=== PATIENT | female | born 1960 | race African-American/Black ===

== ENCOUNTER 2025-05-22 22:53 | Emergency (ER) | payer MEDICAID, OTHER ==
[~2025-05-22] VITALS: Ht 170.2 cm; Wt 125.0 kg
[2025-05-22 22:55] VITALS: O2SAT 98
[2025-05-22 23:32] LABS: BASOPHILS % 0.5 % (0.0-2.0); EOSINOPHILS % 0.4 % (0.0-5.0); HEMATOCRIT. 33.1 % (36.0-48.0); HEMOGLOBIN. 10.9 g/dL (12.0-16.0); LYMPHOCYTES % 17.3 % (20.0-50.0); MEAN PLATELET VOLUME 8.5 fl (7.4-10.4); MONOCYTES % 7.2 % (2.0-8.0); NEUTROPHILS % 74.6 % (40.0-76.0); PLATELET 238 x1000/uL (130-400); RED BLOOD CELL COUNT 3.52 mill/uL (4.2-5.4); RED CELL DISTRIBUTION WIDTH 15.0 % (11.6-14.6)
[2025-05-22 23:44] LABS: CREATININE 1.6 mg/dL (0.6-1.0); UREA NITROGEN BLOOD 24 mg/dL (9-23)
[2025-05-22 23:46] LABS: ASPARTATE AMINOTRANSFERASE 14 IU/L (<34)
[2025-05-22 23:47] LABS: BILIRUBIN DIRECT 0.2 mg/dL (<=3.0); BILIRUBIN TOTAL 0.7 mg/dL (0.1-1.0); PROTEIN TOTAL 7.3 g/dL (6.0-8.3)
[2025-05-22 23:49] LABS: INR 1.1
[2025-05-22 23:52] LABS: TROPONIN I HIGH SENSITIVITY 35 ng/L (3.0-34)
[2025-05-23] MEDS: ASPIRIN 81MG TABLET PO ONE (00:09)
[2025-05-23 00:57] VITALS: BP 142/77; PULSE 68; RESP 12; TEMP 36.8; O2SAT 95
[2025-05-23] MEDS ORDERED: IOHEXOL-350 100 ML BOTTLE ONE ×2 (02:08→08:07)
[2025-05-23] MEDS ORDERED: ATORVASTATIN CALCIUM 40MG TABLET PO SCH (21:00)
== END 2025-05-23 01:05 | disposition short-term general hospital (02) ==
LOC: ER 22:53 → CMPBEDREQ 05-23 08:00
DX: R47.01 Aphasia (principal); E78.00 Pure hypercholesterolemia, unspecified; E11.9 Type 2 diabetes mellitus without complications; Z79.01 Long term (current) use of anticoagulants; Z79.899 Other long term (current) drug therapy
CPT/HCPCS: 80076; 80048; 80320; 83880; 85025; 85610; 85730; 84484; 36415; 71045; 70496; 70498; 70450; 93005; 99291; Q9967; Z7610; G0480